=== PATIENT | male | born 1990 | race Two or more races ===

== ENCOUNTER 2017-03-09 02:14 | Emergency (ER) | payer SELFPAY ==
[2017-03-09] MEDS ORDERED: ETOMIDATE 20 MG/10 ML VIAL IVP ONE (02:21)
[2017-03-09] MEDS ORDERED: ROCURONIUM 100 MG/10 ML VIAL IVP ONE (02:22)
[2017-03-09] MEDS ORDERED: VECURONIUM BROMIDE 10 MG VIAL IV ONE (02:24)
[2017-03-09] MEDS ORDERED: NS 1,000 ML IV ONE (02:25)
[2017-03-09 02:28] LABS: % IMMATURE GRANULYOCYTES 0.2 % (0.0-1.1); ABSOLUTE IMMATURE GRANULOCYTES 0.02 10^3/uL (0.00-0.10); ADD DIFF? NO; ADD MORPH? NO; ADD SCAN? YES; ATYPICAL LYMPHOCYTE FLAG 0 (0-99); FRAGMENT RBC FLAG 0 (0-99); HEMATOCRIT 44.3 % (40.0-51.0); HEMOGLOBIN 15.8 g/dL (13.7-17.5); LEFT SHIFT FLG 0 (0-99); LIPEMIA HEMOLYSIS FLAG 90 (0-99); MEAN CELL HEMOGLOBIN 32.9 pg (27.9-34.1); MEAN CELL HEMOGLOBIN CONCENTR. 35.7 g/dL (32.4-36.7); MEAN CELL VOLUME 92.3 fL (81.5-99.8); MEAN PLATELET VOLUME 10.4 fL (8.7-11.7); PLATELET COUNT 158 10^3/uL (150-400); RED CELL DISTRIBUTION WIDTH 11.9 % (11.5-15.2)
[2017-03-09 02:29] LABS: PLATELET CLUMPS FLAG 300 (0-99)
[2017-03-09] MEDS ORDERED: VECURONIUM BROMIDE 10 MG VIAL ONE ×2 (02:31→02:33)
[2017-03-09] MEDS ORDERED: ETOMIDATE 40 MG/20 ML INJ ONE (02:33)
[2017-03-09] MEDS ORDERED: ROCURONIUM 100 MG/10 ML VIAL ONE (02:34)
[2017-03-09 02:37] LABS: INR 1.27 (0.83-1.16); PROTIME(PATIENT) 15.9 SEC (12.0-15.0)
[2017-03-09 02:38] LABS: APTT 36.1 SEC (23.0-38.0)
[2017-03-09 02:39] LABS: ANION GAP 19 mEq/L (8-16); CALCIUM 9.5 mg/dL (8.5-10.4); CARBON DIOXIDE 15 mEq/l (22-31); CHLORIDE 105 mEq/L (97-110); GLOMERULAR FILTRATION RATE > 60; GLUCOSE 159 mg/dL (70-100); POTASSIUM 3.5 mEq/L (3.5-5.2); SODIUM 139 mEq/L (134-144)
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
[2017-03-09 02:47] LABS: SCAN NEGATIVE
[2017-03-09 02:59] LABS: ETHANOL SERUM 137 mg/dL (0-10)
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
[2017-03-09 06:53] VITALS: BP 128/106; PULSE 128; RESP 8; O2SAT 98
== END 2017-03-09 03:45 | disposition expired ==
LOC: MERGE 02:14 → EDBD 02:14
DX: S01.80XA Unspecified open wound of other part of head, initial encounter (principal); W34.00XA Accidental discharge from unspecified firearms or gun, initial encounter
CPT/HCPCS: 82947-QW; G0480